=== PATIENT | female | born 1975 | race American Indian/Alaskan Native ===

== ENCOUNTER 2020-01-02 23:22 | Emergency (ER) | payer SELFPAY ==
[2020-01-03 02:51] LABS: Basophils % (Auto) 0.3 % (0.0-1.8); Eosinophils # (Auto) 0.1 K/mm3 (0.0-0.4); Eosinophils % (Auto) 1.1 % (0.0-4.3); Hematocrit 38.9 % (30.3-42.9); Lymphocytes # (Auto) 1.8 K/mm3 (1.2-5.4); Lymphocytes % (Auto) 22.2 % (13.4-35.0); Mean Corpuscular HGB Conc 34 % (30-34); Mean Corpuscular Volume 84 fl (79-97); Monocytes # (Auto) 0.7 K/mm3 (0.0-0.8); Monocytes % (Auto) 8.3 % (0.0-7.3); Platelet Count 257 K/mm3 (140-440); Red Blood Count 4.64 M/mm3 (3.65-5.03); Red Cell Distribution Width 15.1 % (13.2-15.2)
[2020-01-03] MEDS ORDERED: ACETAMINOPHEN 500 MG TAB PO ONE (03:40)
[2020-01-03 04:43] LABS: Bacteria,Urine 2+ /HPF (Negative); Bilirubin,Urine NEG (Negative); Blood,Urine MOD (Negative); Color,Urine Yellow (Yellow); Mucus,Urine FEW /HPF; Protein,Urine <15 mg/dL mg/dL (Negative); Urobilinogen,Urine < 2.0 mg/dL (<2.0)
[2020-01-03 04:46] LABS: Alanine Aminotransferase 27 units/L (7-56); BUN/Creatinine Ratio 14; Blood Urea Nitrogen 10 mg/dL (7-17); Calcium 9.2 mg/dL (8.4-10.2); Hemolysis Index 1
--- NOTE | 2020-01-03 05:50 | Ultrasound Report ---
ULTRASOUND OBSTETRIC INDICATION / CLINICAL INFORMATION: Vaginal bleeding, . Clinical Gestational Age (GA): 10 weeks 2 days TECHNIQUE: Transabdominal. Transvaginal COMPARISON: None available. FINDINGS: There is no gestational sac identified within the uterus. Endometrial stripe is not appreciably thick ened, measuring 8 mm. Incidentally noted is a fundal fibroid measuring 2.8 cm. ADNEXA: Both ovaries are well-visualized and appear unremarkable. No evidence of adnexal mass. FREE FLUID: None. ADDITIONAL FINDINGS: None. IMPRESSION: 1. No evidence of gestational sac at this time. Given the elevated hCG level of 4308, the appearance is most consistent with spontaneous . 2. Incidental finding of 2.8 cm uterine fundal fibroid. Signer Name: Yasmine Castellano MD Signed: 01/03/2020 5:45 AM Workstation Name: [id number]
--- NOTE | 2020-01-03 06:07 | Emergency Department Report ---
<JARVIS ESPINOSA - Last Filed: 01/03/20 06:01> ED Female HPI - General Chief complaint: Vaginal Bleeding Stated complaint: VAGINAL BLEEDING NOT NORMAL Source: patient Mode of arrival: Ambulatory Limitations: No Limitations - History of Present Illness Initial comments: Patient is A2 44-year-old -[place] female who presented to the ED with heavy vaginal bleeding with blood clots for 2 days with suprapubic pressure and pain. Patient's LMP was November 10, 2019 states that 8 hours prior to arrival in the ED, the vaginal bleeding was heavy with large blood clots and the pain also got worse. Patient states that the bleeding has been mild previously in the last 4 weeks but that in the last 2 days the bleeding became heavier with blood clots and the suprapubic pain also got worse. Patient denies dizziness, fever, chills, nausea, vomiting, diarrhea, dysuria, urinary frequency and urgency, low back pain, syncope or headache. MD Complaint: vaginal bleeding, pelvic pain (suprapubic pain) -: Sudden, days(s) (2) Location: suprapubic, other (vaginal) Radiation: non-radiating Severity: severe Severity scale (0 -10): 7 Quality: cramping, aching Consistency: constant Improves with: none Worsens with: none Are you Now?: Yes Last Menstrual Period: 11/10/19 EDC: 08/16/20 Associated Symptoms: denies other symptoms, vaginal bleeding, abdominal pain, loss of appetite, hematuria. denies: nausea/vomiting, fever/chills, dysuria, rash, seizure, syncope, other - Related Data Sexually active: Yes : 4 Para: 2 A: 2 Previous Rx's Medication Instructions Recorded Last Taken Type Acetaminophen [Mapap] 500 mg PO Q6H PRN #30 tablet 01/03/20 Unknown Rx Allergies Allergy/AdvReac Type Severity Reaction Status Date / Time No Known Allergies Allergy Unverified 01/03/20 01:58 ED Review of Systems Constitutional: denies: chills, fever Eyes: denies: eye pain, eye discharge, vision change ENT: denies: ear pain, throat pain Respiratory: denies: cough, shortness of breath, wheezing Cardiovascular: denies: chest pain, palpitations Endocrine: no symptoms reported Gastrointestinal: abdominal pain (suprapubic pain). denies: nausea, vomiting, diarrhea, hematochezia Genitourinary: hematuria, abnormal menses (heavy vaginal bleeding with clots). denies: urgency, dysuria, discharge Musculoskeletal: denies: back pain, joint swelling, arthralgia Skin: denies: rash, lesions Neurological: denies: headache, weakness, paresthesias Psychiatric: denies: anxiety, depression Hematological/Lymphatic: denies: easy bleeding, easy bruising ED Past Medical Hx - Past Medical History Previous Medical History?: No - Surgical History Past Surgical History?: Yes Additional Surgical History: Tummy Tuck - Social History Smoking Status: Never Smoker Substance Use Type: None - Medications Home Medications: Home Medications Medication Instructions Recorded Confirmed Last Taken Type Acetaminophen [Mapap] 500 mg PO Q6H PRN #30 tablet 01/03/20 Unknown Rx ED Physical Exam - General Limitations: No Limitations General appearance: alert, in no apparent distress - Head Head exam: Present: atraumatic, normocephalic, normal inspection - Eye Eye exam: Present: normal appearance, PERRL, EOMI Pupils: Present: normal accommodation - ENT ENT exam: Present: normal exam, normal orophraynx, mucous membranes moist, TM's normal bilaterally, normal external ear exam - Neck Neck exam: Present: normal inspection, full ROM. Absent: tenderness, lymphadenopathy - Respiratory Respiratory exam: Present: normal lung sounds bilaterally. Absent: respiratory distress, wheezes, rales, rhonchi, chest wall tenderness, accessory muscle use, decreased breath sounds - Cardiovascular Cardiovascular Exam: Present: regular rate, normal rhythm, normal heart sounds. Absent: systolic murmur, diastolic murmur, rubs, gallop - GI/Abdominal GI/Abdominal exam: Present: soft, tenderness (Palpable mild suprapubic tenderness with no guarding or rebound), normal bowel sounds. Absent: guarding, rebound - Bi-manual exam: Present: other (Pelvic exam deferred, patient declined) - Extremities Exam Extremities exam: Present: normal inspection, full ROM, normal capillary refill - Back Exam Back exam: Present: normal inspection, full ROM. Absent: tenderness, CVA tenderness (L), muscle spasm, paraspinal tenderness, vertebral tenderness - Neurological Exam Neurological exam: Present: alert, oriented X3, CN II-XII intact, normal gait, reflexes normal - Psychiatric Psychiatric exam: Present: normal affect, normal mood - Skin Skin exam: Present: warm, dry, intact, normal color. Absent: rash ED Medical Decision Making - Lab Data Result diagrams: 01/03/20 02:01 01/03/20 03:50 - Radiology Data Radiology results: report reviewed, image reviewed Findings [facility] [address] [place] [address] Ultrasound Report Signed Patient: SABI MCGRATH MR#: [id number] : 1975 Acct:[id number] Age/Sex: 44 / F ADM Date: 01/02/20 Loc: ED Attending Dr: Ordering Physician: GREGORY BLACK Date of Service: 01/03/20 Procedure(s): US OB transvaginal Accession Number(s): [id number] cc: GREGORY BLACK ULTRASOUND OBSTETRIC INDICATION / CLINICAL INFORMATION: Vaginal bleeding, . Clinical Gestational Age (GA): 10 weeks 2 days TECHNIQUE: Transabdominal. Transvaginal COMPARISON: None available. FINDINGS: There is no gestational sac identified within the uterus. Endometrial stripe is not appreciably thickened, measuring 8 mm. Incidentally noted is a fundal fibroid measuring 2.8 cm. ADNEXA: Both ovaries are well-visualized and appear unremarkable. No evidence of adnexal mass. FREE FLUID: None. ADDITIONAL FINDINGS: None. IMPRESSION: 1. No evidence of gestational sac at this time. Given the elevated hCG level of 4308, the appearance is most consistent with spontaneous . 2. Incidental finding of 2.8 cm uterine fundal fibroid. Signer Name: Yasmine Castellano MD Signed: 01/03/2020 5:45 AM Workstation Name: [id number] Transcribed By: JR Dictated By: Yasmine Castellano MD Electronically Authenticated By: Yasmine Castellano MD Signed Date/Time: 01/03/20 0545 DD/ 0542 TD/TT: - Medical Decision Making This is A2 44-year-old -[place] female who presented to the ED with heavy vaginal bleeding with blood clots for 2 days with suprapubic pressure and pain. Patient's LMP was November 10, 2019 states that 8 hours prior to arrival in the ED, the vaginal bleeding was heavy with large blood clots and the pain also got worse. In the ED, patient is alert and oriented x3 and is not in distress. Patient was treated for pain in the ED with Tylenol. Lab test results were reviewed and showed a positive hCG serum test and hCG quant of 4308, which is strongly positive for . Transvaginal and ultrasound showed no evidence of gestational sac at this time. Given the elevated hCG level of 4308, the appearance is most consistent with spontaneous . There was also an incidental finding of 2.8 cm uterine fundal fibroid. On reevaluation, patient's pain is well controlled with medications. Patient was advised to return to the ED or follow-up with VENDING ATTENDANT physician in 48 hours for serial hCG quant repeat studies to characterize the viability of the and to confirm whether there has been complete demise. Patient was meanwhile advised to maintain a complete pelvic rest and to take Tylenol as needed for pain. - Differential Diagnosis threatened ; demise; ectopic ; UTI; Ovarian cyst ED Disposition Clinical Impression: Threatened miscarriage, demise due to miscarriage, as in cidental finding Abdominal pain in Qualifiers: Trimester: first trimester Qualified Code(s): O26.891 - Other specified related conditions, first trimester Disposition: DC-01 TO HOME OR SELFCARE Is pt being admited?: No Does the pt Need Aspirin: No Condition: Stable Instructions: Spontaneous Miscarriage (ED), Threatened Miscarriage (ED), Acute Abdominal Pain (ED) Additional Instructions: Maintain a complete pelvic rest, take Tylenol as needed for pain and follow-up with your VENDING ATTENDANT physician or return to the ED in 48 hours for repeat of hCG quant serial tests to confirm the viability of the . Return to the ED immediately if symptoms get worse. Prescriptions: Acetaminophen [Mapap] 500 mg PO Q6H PRN #30 tablet PRN Reason: Pain , Severe (7-10) Referrals: TRINH GONZALEZ MD [Staff Physician] - 2-3 Days (FOLLOW UP WITHIN 48 HOURS) Forms: Work/School Release Form(ED) Time of Disposition: 06:11 Print Language: GERMAN <NAE ZAYAS - Last Filed: 01/05/20 02:14> ED Review of Systems ROS: Stated complaint: VAGINAL BLEEDING NOT NORMAL Other details as noted in HPI ED Course Vital Signs 01/03/20 01/03/20 01/03/20 00:07 06:15 06:20 Temperature 98.4 F Pulse Rate 64 59 L Respiratory 18 16 16 Rate Blood Pressure 135/67 Blood Pressure 110/57 [Right] O2 Sat by Pulse 99 100 Oximetry ED Medical Decision Making - Lab Data Result diagrams: 01/03/20 02:01 01/03/20 03:50 Critical care attestation.: If time is entered above; I have spent that time in minutes in the direct care of this critically ill patient, excluding procedure time. ED Disposition Is pt being admited?: No Does the pt Need Aspirin: No
[2020-01-03 06:15] VITALS: BP 110/57
== END 2020-01-03 06:21 | disposition home or self-care (01) ==
LOC: ED 23:22
DX: O20.0 Threatened abortion (principal); Z3A.01 Less than 8 weeks gestation of pregnancy
CPT/HCPCS: 36415; 76801; 76817; 80053; 81001; 84702; 84703; 85025; 86900; 86901; 99284

== ENCOUNTER 2020-01-05 22:53 | Emergency (ER) | payer SELFPAY ==
--- NOTE | 2020-01-06 02:37 | Emergency Department Report ---
ED Recheck HPI - General Chief Complaint: Medical Clearance Stated Complaint: FOLLOW UP FROM 01/02/2020 Time Seen by Provider: 01/06/20 02:28 Source: patient Mode of arrival: Ambulatory Limitations: No Limitations - History of Present Illness Initial Comments: 44-year-old female presents emergency department for evaluation of hCG as recommended from her previous ED visit which she was found to have a miscarriage/ demise. She reports she is having some vague cramping but reports no significant abdominal pain or presyncope no shortness of breath. Reports no fever, chills, sweats no chest pain palpitations no nausea or vomiting. Returns Today for: other Symptoms Since Prior Visit: no new symptoms Associated Symptoms: none Treatments Prior to Arrival: other medications - Related Data Previous Rx's Medication Instructions Recorded Last Taken Type Acetaminophen [Mapap] 500 mg PO Q6H PRN #30 tablet 01/03/20 Unknown Rx Allergies Allergy/AdvReac Type Severity Reaction Status Date / Time No Known Allergies Allergy Unverified 01/03/20 01:58 ED Review of Systems ROS: Stated complaint: FOLLOW UP FROM 01/02/2020 Other details as noted in HPI Comment: All other systems reviewed and negative ED Past Medical Hx - Past Medical History Previous Medical History?: No - Surgical History Past Surgical History?: No Additional Surgical History: Tummy Tuck - Social History Smoking Status: Never Smoker Substance Use Type: None - Medications Home Medications: Home Medications Medication Instructions Recorded Confirmed Last Taken Type Acetaminophen [Mapap] 500 mg PO Q6H PRN #30 tablet 01/03/20 Unknown Rx ED Physical Exam - General Limitations: No Limitations General appearance: alert, in no apparent distress - Head Head exam: Present: atraumatic, normocephalic - Eye Eye exam: Present: normal appearance, PERRL, EOMI Pupils: Present: normal accommodation - ENT ENT exam: Present: mucous membranes moist - Neck Neck exam: Present: normal inspection - Respiratory Respiratory exam: Present: normal lung sounds bilaterally. Absent: respiratory distress - Cardiovascular Cardiovascular Exam: Present: regular rate, normal rhythm. Absent: systolic murmur, diastolic murmur, rubs, gallop - GI/Abdominal GI/Abdominal exam: Present: soft, normal bowel sounds - Extremities Exam Extremities exam: Present: normal inspection - Back Exam Back exam: Present: normal inspection - Neurological Exam Neurological exam: Present: alert, oriented X3 - Psychiatric Psychiatric exam: Present: normal affect, normal mood - Skin Skin exam: Present: warm, dry, intact, normal color. Absent: rash ED Recheck MDM - Medical Decision Making Ms. Saravia spontaneously having miscarriage her quant is reducing as expected Critical care attestation.: If time is entered above; I have spent that time in minutes in the direct care of this critically ill patient, excluding procedure time. ED Disposition Clinical Impression: Miscarriage Disposition: DC- TO HOME OR SELFCARE Is pt being admited?: No Does the pt Need Aspirin: No Condition: Stable Instructions: Spontaneous Miscarriage (ED) Referrals: [facility] [Provider Group] - 3-5 Days
== END 2020-01-06 02:39 | disposition home or self-care (01) ==
LOC: ED 22:53
DX: O03.9 Complete or unspecified spontaneous abortion without complication (principal); Z3A.00 Weeks of gestation of pregnancy not specified; Z79.899 Other long term (current) drug therapy
CPT/HCPCS: 36415; 84702; 99283